=== PATIENT | male | born 1935 | race Caucasian/White ===

== ENCOUNTER → 2018-01-10 | Outpatient (CLI) | payer OTHER, MEDICARE ==
[~2018-01-10] MED LIST: AMLO-114 PO; DIPH25CA65 PO; DONE5TAB9 PO; HYZ/10015 PO; MULT-1027 PO
[2018-01-10 14:09] VITALS: BP 132/67; PULSE 56; TEMP 36.4; O2SAT 99
--- NOTE | 2018-01-10 16:00 | Radiation Oncology Follow-Up ---
Radiation Oncology Follow-Up Date of Visit Jan 10, 2018. 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 He received 3000 cGy. Last Edited By: Raisa Hand on Dec 14, 2017 11:34 History of Present Illness Mr. North has Alzheimer's dementia and presented with sudden onset of left facial paralysis 3 months ago. The patient was seen by a neurologist for workup for potential Lyme disease or Hough's palsy and noted a mass involving the left face. The patient was then referred to Dr. Eid from ENT. 09/27/2017 --- CT of soft tissues of neck without contrast --- 24 mm mass centered in the subcutaneous tissues adjacent to the left ear which appears to be contiguous with the left masseter muscle and could be invading the muscle. Additionally an 8 mm left level 2 lymph node is asymmetrically prominent compared to other lymph nodes. Left parotid gland is absent. 10/11/2017 --- left parotid mass biopsy --- neoplasm of uncertain malignant potential. Atypical epithelial cells, low-grade carcinoma cannot rule out. 11/01/2017 --- PET/CT --- FDG avid mass in the left parotid gland, extending to the skin surface just anterior to the left ear, consistent with history of epithelial neoplasm. No evidence of distant metastatic disease. 11/01/2017 --- head and neck clinic, [facility], [place], [place] --- general recommendations from the group were to consider definitive chemotherapy and radiation therapy. We are now seeing the patient in consultation discuss the role of radiation therapy. 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 Additionally, the family does note that there is some minimal ulceration from the primary parotid mass. They did note that he is not complaining of any pain. Also, they did express clear interest against aggressive treatment and would only prefer treatment to help with symptoms and quality of life. Status post completion of radiation therapy December 08, 2017. He received 3000 cGy. Interim History Over the past month he had steady healing of the skin of the left lateral face. There were areas of desquamation behind and below the left earlobe. These have nearly healed other than one small area which his states he will not leave alone. There is been no drainage from this area. He has had no bleeding. He does not complain of facial pain. There was some itching of the skin. He will be seeing a physician at the [facility] in [place] in regards to the ectropion. He does not currently have any follow-up visits with ENT. They do not currently wish to travel for follow-up to [place]. Allergies Coded Allergies: No Known Allergies (Unverified , 11/09/17) Home Medications Scheduled Amlodipine (Norvasc), 10 MG PO DAILY Diphenhydramine Hcl (Benadryl Allergy), 1 CAP PO HS Donepezil HCl (Aricept), 2 TAB PO HS Hctz/Losartan (Hyzaar 25MG/100MG), 1 TAB PO DAILY Multiple Vitamin (Multi Vitamin), 1 TAB PO DAILY Review of Systems Gastrointestinal: Symptoms: WNL Oral: Symptoms: No Problems Respiratory: Symptoms: WNL Urinary: Symptoms: WNL Skin: Symptoms: Faint Erythema Other Skin Symptoms: Redness at left cheek/left earlobe area - open between cheek/earlobe - NCG Physical Exam Vital Signs Date Time Temp Pulse Resp B/P (MAP) Pulse Ox O2 Delivery O2 Flow Rate FiO2 01/10/18 14:09 36.4 56 16 132/67 99 ECOG Performance Status: 2 Fatigue: Moderate General Appearance: no apparent distress, + pertinent finding (He has a left facial droop. There is resolving erythema of the left lateral cheek. There is firmness and fibrous tissue in the area of the parotid gland.) Eyes: + pertinent finding (There is an ectropion of the left lower eyelid.) Neck: no adenopathy, thyroid normal Respiratory/Chest: lungs clear, no respiratory distress, no accessory muscle use Cardiovascular: regular rate, rhythm, no gallop, no murmur Skin: warm/dry Pain Management Patient Reports Pain: No Initial Pain Intensity: 0.0 Pain Management Plan He denies pain therefore requires no pain management. Laboratory Laboratory Results: not applicable Pathology Pathology Results: not applicable Imaging Imaging Studies: not applicable Assessment & Plan Plan: He was seen and examined today by Dr. Miller. He will be following with the [facility] in regards to the left eye ectropion. There was discussion today in regards to follow-up. They currently do not wish to pursue any further follow-up with ENT in [place]. They were in agreement to see Dr. Lopez so that he may enter into palliative care. He will return to our office on a as needed basis. Assessment & Plan (Attending) I agree with note created by Raisa Hand PA-C. I reviewed the patient's chart and information with her. I have examined and evaluated the patient. I reviewed relevant clinical information and answered the patient's and/or family' s questions. BUILDING [employer]OVER Total Time In Follow-Up I spent 20 minutes speaking to the patient in performing examination. I spent 15 minutes reviewing information and completing this note. AK Total Time (Attending) In Follow-Up I spent 15 minutes examining and counseling the patient. BU[employer] Copy To Chirag Sarmiento D.O.; Jami Lopez M.D.
== END | disposition home or self-care (01) ==
LOC: C.ONC 13:47
PROVIDERS: ATTEND Physician Assistant Medical
DX: Z08 Encounter for follow-up examination after completed treatment for malignant neoplasm (principal); Z92.3 Personal history of irradiation; Z85.89 Personal history of malignant neoplasm of other organs and systems